=== PATIENT | male | born 1990 | race African-American/Black ===

== ENCOUNTER 2016-07-07 22:27 | Observation (INO) | payer OTHER ==
[~2016-07-07] VITALS: Ht 188 cm; Wt 70.0 kg
[2016-07-07 22:44] VITALS: BP 141/77; PULSE 64; RESP 18; TEMP 97.9; O2SAT 99
[2016-07-07] MEDS ORDERED: XANA1TAB2 PO (22:48)
[2016-07-08] VITALS (7 sets, daily range): BP systolic 111–142; BP diastolic 58–84; PULSE 48–81; RESP 16–18; TEMP 98–98.3; O2SAT 97–99
--- NOTE | 2016-07-08 00:07 | PD ---
HPI Chief Complaint: Chest Pain Time Seen by Provider: 23:48 Travel History International Travel<30 days: No Contact w/Intl Traveler<30days: No Traveled to known affect area: No History of Present Illness HPI 25-year-old male complains of chest pain. Patient states that he has recurrent chest pain for the past week and a half. Patient has been to [facility] times during that time for chest pain. Patient was diagnosis anxiety. Patient was given prescription Xanax. Patient states that he is unable to tolerated Xanax secondary to nausea vomiting. Patient states that the symptoms typical of increasing heart rate, feeling heavy on the chest, muscle spasm, numbness tingling sensation of the extremity. Patient states that the symptoms do she last 1245 minutes to an hour and resolved completely. Patient denies any history of CAD. Patient denies history hypertension, diabetes, dyslipidemia. Patient denies any alcohol or illicit drug abuse. Patient denies any history of smoking. PFSH Past Medical History Medical History: Denies Significant Hx ?: Not Past Surgical History Other Surgery: Yes (LEFT ARM SURGERY ) Social History Alcohol Use: No Tobacco Use: No Substance Use: No Allergies-Medications Reported Meds & Prescriptions Reported Meds & Active Scripts Active Reported Xanax (Alprazolam) 1 Mg Tab 1 Mg PO TID PRN Review of Systems General / Constitutional: No: Fever Eyes: No: Visual changes HENT: No: Headaches Cardiovascular: Positive: Chest Pain or Discomfort, Tachycardia Respiratory: No: Shortness of Breath Gastrointestinal: No: Abdominal Pain Genitourinary: No: Dysuria Musculoskeletal: No: Pain Skin: No Rash Neurologic: No: Weakness Psychiatric: No: Depression Endocrine: No: Polydipsia Hematologic/Lymphatic: No: Easy Bruising Physical Exam Narrative GENERAL: Well-nourished, well-developed patient. SKIN: Warm and dry. HEAD: Normocephalic. EYES: No scleral icterus. No injection or drainage. NECK: Supple, trachea midline. No JVD or lymphadenopathy. CARDIOVASCULAR: Regular rate and rhythm without murmurs, gallops, or rubs. RESPIRATORY: Breath sounds equal bilaterally. No accessory muscle use. GASTROINTESTINAL: Abdomen soft, non-tender, nondistended. MUSCULOSKELETAL: No cyanosis, or edema. BACK: Nontender without obvious deformity. No CVA tenderness. Neurologic exam normal. Data Data Last Documented VS Vital Signs Date Time Temp Pulse Resp B/P Pulse Ox O2 Delivery O2 Flow Rate FiO2 07/08/16 00:12 99 Room Air 07/07/16 22:44 97.9 64 18 141/77 Orders Electrocardiogram (07/07/16 23:59) Complete Blood Count With Diff (07/07/16 23:59) Comprehensive Metabolic Panel (07/07/16 23:59) Creatine Kinase (Cpk) (07/07/16 23:59) Troponin I (07/07/16 23:59) Prothrombin Time / Inr (Pt) (07/07/16 23:59) Act Partial Throm Time (Ptt) (07/07/16 23:59) Thyroid Stimulating Hormone (07/07/16 23:59) Chest, Single Ap (07/07/16 23:59) Iv Access Insert/Monitor (07/07/16 23:59) Ecg Monitoring (07/07/16 23:59) Oximetry (07/07/16 23:59) Drug Screen, Random Urine (07/08/16 00:04) Labs Laboratory Tests Test 07/08/16 00:10 White Blood Count 5.0 TH/MM3 Red Blood Count 4.59 MIL/MM3 Hemoglobin 13.8 GM/DL Hematocrit 40.8 % Mean Corpuscular Volume 88.9 FL Mean Corpuscular Hemoglobin 30.0 PG Mean Corpuscular Hemoglobin 33.8 % Concent Red Cell Distribution Width 12.6 % Platelet Count 224 TH/MM3 Mean Platelet Volume 9.8 FL Neutrophils (%) (Auto) 55.4 % Lymphocytes (%) (Auto) 32.6 % Monocytes (%) (Auto) 6.6 % Eosinophils (%) (Auto) 4.5 % Basophils (%) (Auto) 0.9 % Neutrophils # (Auto) 2.7 TH/MM3 Lymphocytes # (Auto) 1.6 TH/MM3 Monocytes # (Auto) 0.3 TH/MM3 Eosinophils # (Auto) 0.2 TH/MM3 Basophils # (Auto) 0.0 TH/MM3 CBC Comment DIFF FINAL Differential Comment Prothrombin Time 11.5 SEC Prothromb Time International 1.0 RATIO Ratio Activated Partial 29.4 SEC Thromboplast Time Sodium Level 142 MEQ/L Potassium Level 3.9 MEQ/L Chloride Level 107 MEQ/L Carbon Dioxide Level 26.8 MEQ/L Anion Gap 8 MEQ/L Blood Urea Nitrogen 10 MG/DL Creatinine 1.29 MG/DL Estimat Glomerular Filtration 83 ML/MIN Rate Random Glucose 78 MG/DL Calcium Level 8.7 MG/DL Total Bilirubin 0.3 MG/DL Aspartate Amino Transf 18 U/L (AST/SGOT) Alanine Aminotransferase 27 U/L (ALT/SGPT) Alkaline Phosphatase 67 U/L Total Creatine Kinase 188 U/L Troponin I LESS THAN 0.02 NG/ML Total Protein 7.2 GM/DL Albumin 4.3 GM/DL Thyroid Stimulating Hormone 1.490 uIU/ML 3rd Gen [facility] Medical Decision Making Medical Screen Exam Complete: Yes Emergency Medical Condition: Yes Interpretation(s) 12:54 AM. EKG shows sinus rhythm nonspecific ST-T wave change. CBC within normal limit. CMP within normal limit. Cardiac enzymes are normal. Differential Diagnosis Differential diagnosis including anxiety, angina, [place], PE, pneumothorax. Narrative Course 25-year-old male with recurrent chest pain tachycardia. History of anxiety. Patient will be admitted to the chest pain center. Diagnosis Primary Impression: Chest pain Qualified Code: R07.9 - Chest pain, unspecified type Admitting Information Admitting Physician Requests: Oliver Jung MD Jul 08, 2016 00:07
[2016-07-08 00:19] LABS: AUTOMATED NEUTROPHIL # 2.7 TH/MM3 (1.8-7.7); BASOPHIL % 0.9 % (0.0-2.0); EOSINOPHIL # 0.2 TH/MM3 (0-0.4); EOSINOPHIL % 4.5 % (0.0-4.0); HEMATOCRIT 40.8 % (39.0-51.0); HEMO FLAGS DIFF FINAL; LYMPH % 32.6 % (9.0-44.0); LYMPHOCYTE # 1.6 TH/MM3 (1.0-4.8); MEAN CELL VOLUME 88.9 FL (80.0-100.0); MEAN CORPUSCULAR HGB CONC 33.8 % (32.0-36.0); MONO % 6.6 % (0.0-8.0); NEUT % 55.4 % (16.0-70.0); PLATELET COUNT 224 TH/MM3 (150-450); RED BLOOD COUNT 4.59 MIL/MM3 (4.50-5.90); RED CELL DISTRIBUTION WIDTH 12.6 % (11.6-17.2)
[2016-07-08 00:25] LABS: APTT (PATIENT) 29.4 SEC (24.3-30.1); PROTHROMBIN TIME - PATIENT 11.5 SEC (9.8-11.6)
--- NOTE | 2016-07-08 00:38 | RADRPT ---
EXAM DATE/TIME: 07/08/2016 00:12 [facility] COMPARISON: No previous studies available for comparison. INDICATIONS : Chest pain. MEDICAL HISTORY : None. SURGICAL HISTORY : None. ENCOUNTER: Initial ACUITY: 1 day PAIN SCORE: 5/10 LOCATION: Bilateral chest FINDINGS: A single view of the chest demonstrates the lungs to be symmetrically aerated without evidence of mas s, infiltrate or effusion. The cardiomediastinal contours are unremarkable. Osseous structures are intact. CONCLUSION: Normal examination for a patient of this age. Terrell Martin MD on July 08, 2016 at 0:36 Board Certified Radiologist. This report was verified electronically.
[2016-07-08 00:47] LABS: ALKALINE PHOSPHATASE 67 U/L (45-117); ALT (GPT) 27 U/L (12-78); ANION GAP 8 MEQ/L (5-15); AST (GOT) 18 U/L (15-37); BICARBONATE 26.8 MEQ/L (21.0-32.0); BLOOD UREA NITROGEN 10 MG/DL (7-18); CHLORIDE 107 MEQ/L (98-107); CREATINE KINASE 188 U/L (39-308); GLOMERULAR FILTRATION RATE 83 ML/MIN (>89); POTASSIUM 3.9 MEQ/L (3.5-5.1); SODIUM (NA) 142 MEQ/L (136-145); TOTAL BILIRUBIN ADULT 0.3 MG/DL (0.2-1.0)
--- NOTE | 2016-07-08 10:39 | EKG ---
Date Performed: 07/08/2016 Time Performed: 09:12:31 PTAGE: 25 years EKG: Sinus rhythm WITH SINUS ARRHYTHMIA SEPTAL MYOCARDIAL INFARCTION ABNORMAL ECG Since previous tracing, no significa nt change noted NO PREVIOUS TRACING DOCTOR: Gretchen De Leon Interpretating Date/Time 07/08/2016 10:38:49
--- NOTE | 2016-07-08 10:43 | EKG ---
Date Performed: 07/08/2016 Time Performed: 04:43:13 PTAGE: 25 years EKG: SINUS BRADYCARDIA EARLY REPOLARIZATION BORDERLINE ECG NO PREVIOUS TRACING DOCTOR: Gretchen De Leon Interpretating Date/Time 07/08/2016 10:42:07
--- NOTE | 2016-07-08 10:44 | EKG ---
Date Performed: 07/07/2016 Time Performed: 23:59:45 PTAGE: 25 years EKG: SINUS BRADYCARDIA SEPTAL MYOCARDIAL INFARCTION ABNORMAL ECG NO PREVIOUS TRACING DOCTOR: Gretchen De Leon Interpretating Date/Time 07/08/2016 10:42:48
[2016-07-08] MEDS ORDERED: NITROGLYCERIN 0.4 MG SL 25 TABS/BTL SL PRN (15:45)
[2016-07-08] MEDS ORDERED: METOPROLOL TARTRATE 5 MG/5 ML VIAL IV PRN (15:45)
--- NOTE | 2016-07-08 16:15 | MH ---
cc: EDGAR HARPER MD DATE OF ADMISSION: 07/08/2016 DATE OF : 1990 CHIEF COMPLAINT Chest pain. HISTORY OF PRESENT ILLNESS This is a 25-year-old patient with no history of coronary artery disease, hypertension, diabetes or dyslipidemia. He also denies any alcohol or illegal drug use. He presented to the emergency room for chest pain located on his left anterior chest that occasionally will radiate to the left side of his neck. The patient states this has been going on "for a while" and has actually been evaluated at a local hospital multiple times for chest pain, and each time he was diagnosed with anxiety. He was given a prescription for Xanax, however, the patient states he is not anxious and truly believes he has coronary artery disease and requesting further evaluation. He has no associated symptoms, no known precipitating factors or relieving factors. PAST MEDICAL HISTORY Noncontributory for any early onset cardiovascular disease. 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 He is a lifelong nonsmoker. Denies any alcohol or illegal drug use. No known hypertension, diabetes or dyslipidemia and states he is actually healthy and exercises on a regular basis, even jogs occasionally and he does not develop any chest discomfort while he is jogging. ALLERGIES No known allergies. MEDICATIONS He is not taking any current prescription medications or vitamins or supplements. REVIEW OF SYSTEMS GENERAL: No recent illness, fevers, chills, recent travel or fatigue. No change in appetite. HEENT: No headache, vision changes, nasal congestion or drainage. CARDIOVASCULAR: As stated above. No intermittent leg pain or dizziness. No palpitations. RESPIRATORY: No shortness of breath, cough, wheeze, hemoptysis or asthma. GASTROINTESTINAL: No bowel changes, diarrhea, constipation, abdominal pain, distension, nausea or vomiting. Reports a good appetite. GENITOURINARY: No dysuria. EXTREMITIES: No lower leg edema. MUSCULOSKELETAL: He has full range of motion. NEUROLOGIC: No difficulty with balance, motor or sensory deficit. No loss of consciousness or syncopal episodes. PSYCHIATRIC: He has been told he has anxiety. The patient does not feel as though he is anxious. Denies depression. SKIN: No concerning rashes or lesions. PHYSICAL EXAMINATION VITAL SIGNS: Temperature 98.3, pulse 74, respiratory rate 18, blood pressure 131/84, 98% on room air. GENERAL: An alert, well-nourished, well-developed, in no acute distress, pleasant -[place] male. HEAD: Normocephalic, atraumatic. EYES: Sclera clear. Conjunctiva without injection. ENT: Mucous membranes are pink and moist. NECK: Supple. Trachea is midline. CARDIOVASCULAR: He has a regular rate and rhythm without murmur, rub or gallop. No JVD. S1, S2. No S3. No S4. PULMONARY: Clear lungs throughout bilaterally with no crackles, wheeze or rhonchi. He has a symmetrical chest rise. ABDOMEN: Flat, soft, nontender, nondistended. EXTREMITIES: Pulses +2 x4. No dependent edema. NEUROLOGIC: Cranial nerves II through XII grossly intact. Motor strength 5/5. Gait is within normal limits. PSYCHIATRIC: Alert and oriented x3. Pleasant affect. Appropriate mood, insight and judgment. SKIN: Normal turgor. Normal texture. Warm and dry with a brisk capillary refill. LABORATORY CBC is unremarkable. Chemistry is unremarkable. Coagulation is unremarkable. IMAGING Chest x-ray read by the radiologist has a normal examination for a patient of this age. EKG Three EKGs show normal sinus bradycardic rhythm with early repolarization. ASSESSMENT AND PLAN 1. Chest pain: The patient has been admitted to the chest pain center, was ruled out with three sets of EKGs and cardiac enzymes. He was seen and evaluated by Dr. Edgar Harper. I discussed with the patient in length the unlikelihood that his chest discomfort is related to coronary disease and most likely due to his probable anxiety. Discussed at length and encouraged the patient not to have a stress test due to a probable false positive test. The patient is adamant that he wants further cardiac testing, therefore a stress test was completed. The stress test was abnormal therefore we will now complete a CT coronary artery exam. This has been discussed with the patient at length and he is agreeable to this plan. 2. Anxiety: Encourage the patient to continue taking Xanax as previously ordered for him and to find a primary care provider to discuss any changes that may need to be made regarding antianxiety medication. Discussed and educated the patient that an anxiety attack does not necessarily need to be brought on by a stressful situation. The patient expresses understanding. Dictated by: PAM Morfin Sujit Fontaine /1:31 PM /4:14 PM
[2016-07-08] MEDS ORDERED: NITROGLYCERIN 0.4 MG SL 25 TABS/BTL SL ONE (16:49)
--- NOTE | 2016-07-08 18:38 | HHI.DCPOC ---
Discharge Care Plan Diagnosis: (1) Atypical chest pain (2) Anxiety Goals to Promote Your Health * To prevent worsening of your condition and complications * To maintain your health at the optimal level Directions to Meet Your Goals Take your medications as prescribed Follow your dietary instruction Follow activity as directed Keep your appointments as scheduled Take your immunizations and boosters as scheduled If your symptoms worsen call your PCP, if no PCP go to Urgent Care Center or Emergency Room Smoking is Dangerous to Your Health. Avoid second hand smoke Call the 24-hour hour crisis hotline for domestic abuse at Julissa Joel Jul 08, 2016 18:38
[2016-07-08] MEDS ORDERED: IOHEXOL 350 MG/ML 10 ML VIAL (for RAD DIAG) IV ONE (19:22)
--- NOTE | 2016-07-08 19:37 | RADRPT ---
EXAM DATE/TIME: 07/08/2016 16:56 [facility] COMPARISON: No previous studies available for comparison. INDICATIONS : Fast heart rate,chest pain, numbness in extremities for ten days. IV CONTRAST: 80 cc Omnipaque 350 (iohexol) IV RADIATION DOSE: 3.84 CTDIvol (mGy) MEDICAL HISTORY : None SURGICAL HISTORY : None. ENCOUNTER: Initial ACUITY: 2 weeks PAIN SCALE: 5/10 LOCATION: chest Cardiac TECHNIQUE: Volumetric scanning was obtained through the heart. Images were acquired on a multislice multiple ro w detector helical scanner timed for acquisition during peak arterial contrast. Images were reconstr ucted using a retrospective gating algorithm including single sector and multi-sector algorithms at m ultiple phases of the cardiac cycle. Images were interpreted using a combination of 2D and 3D visual ization modes including curved planar reformation, thin slab maximum intensity projection and volume rendering. Using automated exposure control and adjustment of the mA and/or kV according to patient size, radiation dose was kept as low as reasonably achievable to obtain optimal diagnostic quality im ages. FINDINGS: VESSEL ANALYSIS: DOMINANCE: The coronary system is left dominant. LEFT MAIN: Normal vessel without calcification or stenosis. LAD: Normal vessel without calcification or stenosis. CIRCUMFLEX: Normal vessel without calcification or stenosis. RCA: Normal vessel without calcification or stenosis. OTHER: Calcium score is zero. CONCLUSION: Normal examination. Armando Villalpando Jr., MD on July 08, 2016 at 19:30 Board Certified Radiologist. This report was verified electronically.
--- NOTE | 2016-07-09 15:34 | TR ---
Date Performed: 07/08/2016 Time Performed: 11:25:58 DOCTOR: Hudson Ritchie DRUG LIST: CLINICAL HISTORY: CHEST PAIN REASON FOR TEST: Chest pain REASON FOR ENDING: OBSERVATION: CONCLUSION: Eyal protocol completed. Stopped sec to reaching target heart rate and leg fatigue. Maximum MR=729 Max HR Achieved=88.0% Maximum LE=214/80 Total Exercise Time=9:26. St depression infer ior leads, t wave inversions. No reprod chest pain. No ectopy. Hypertensive bp response. Quick and un remarkable recovery. COMMENTS: ST depression noted at peak exercise which may represent ischemia
== END 2016-07-08 22:28 | disposition home or self-care (01) ==
LOC: NEPA 22:27 → NEDA 07-08 01:12 → NEDH 07-08 06:16 → NEPHCDU 07-08 19:30
PROVIDERS: ADMIT Internal Medicine Interventional Cardiology; ATTEND Internal Medicine Interventional Cardiology
DX: R07.89 Other chest pain (principal); F41.1 Generalized anxiety disorder; R94.31 Abnormal electrocardiogram [ECG] [EKG]
CPT/HCPCS: 71010; 75574; 80053; 82550; 84443; 84484; 85025; 85610; 85730; 93005; 93017; 99285; G0378; Q9967

== ENCOUNTER 2016-07-17 19:11 | Emergency (ER) | payer OTHER ==
[~2016-07-17] VITALS: Ht 188 cm; Wt 154.0 kg
[~2016-07-17 19:11] MED LIST: XANA1TAB2 PO
[2016-07-17 19:12] VITALS: BP 137/76; PULSE 71; RESP 14; TEMP 98.3; O2SAT 98
[2016-07-17 20:11] LABS: AUTOMATED NEUTROPHIL # 2.6 TH/MM3 (1.8-7.7); BASOPHIL % 0.9 % (0.0-2.0); EOSINOPHIL # 0.2 TH/MM3 (0-0.4); EOSINOPHIL % 4.8 % (0.0-4.0); HEMATOCRIT 41.2 % (39.0-51.0); HEMO FLAGS DIFF FINAL; LYMPHOCYTE # 1.6 TH/MM3 (1.0-4.8); MEAN CELL VOLUME 89.5 FL (80.0-100.0); MEAN CORPUSCULAR HEMOGLOBIN 30.2 PG (27.0-34.0); MEAN CORPUSCULAR HGB CONC 33.8 % (32.0-36.0); MONO % 6.7 % (0.0-8.0); NEUT % 54.6 % (16.0-70.0); PLATELET COUNT 216 TH/MM3 (150-450); RED CELL DISTRIBUTION WIDTH 12.9 % (11.6-17.2); WHITE BLOOD COUNT 4.7 TH/MM3 (4.0-11.0)
[2016-07-17 20:31] LABS: ANION GAP 6 MEQ/L (5-15); BICARBONATE 30.8 MEQ/L (21.0-32.0); BLOOD UREA NITROGEN 10 MG/DL (7-18); CHLORIDE 104 MEQ/L (98-107); GLOMERULAR FILTRATION RATE 85 ML/MIN (>89); POTASSIUM 3.6 MEQ/L (3.5-5.1); SODIUM (NA) 141 MEQ/L (136-145)
[2016-07-17 20:36] LABS: CREATINE KINASE 147 U/L (39-308)
[2016-07-17 20:49] LABS: CKMB 0.6 NG/ML (0.5-3.6)
[2016-07-18] MEDS ORDERED: IBUP-232 PO (04:09)
--- NOTE | 2016-07-18 04:09 | PD ---
HPI Chief Complaint: Chest Pain Time Seen by Provider: 03:00 Travel History International Travel<30 days: No Contact w/Intl Traveler<30days: No Traveled to known affect area: No History of Present Illness HPI 25-year-old male came to the emergency room with history of left sided scapular and axillary pain has been going on for over a week now. The pain comes in spasms on and off. Patient was seen in the emergency room for this pain on 08 July and was admitted in the chest pain center. He had a stress test which as per the report says that he did not pass it. This was followed by a CT coronary angiography which was read as within normal limits. Patient was cleared from cardiology standpoint. He is back here again today saying that the pain does not go away and because he took a lot of days off from work he lost his job. He was really concerned about the pain and wanted to know what was going on. Vital signs are stable. He is otherwise a healthy individual with no other medical problems. [facility] Past Medical History Narrative Medical List of his past medical history as reviewed from the nursing note. Medical History: Denies Significant Hx Tetanus Vaccination: < 5 Years Past Surgical History Other Surgery: Yes (LEFT ARM SURGERY ) Social History Alcohol Use: No Tobacco Use: No Substance Use: No Allergies-Medications (Allergen,Severity, Reaction): Coded Allergies: No Known Allergies (Unverified , 07/08/16) Comments No known drug allergies. Reported Meds & Prescriptions Reported Meds & Active Scripts Active Ibuprofen 600 Mg Tab 600 Mg PO Q8HR PRN Reported Xanax (Alprazolam) 1 Mg Tab 1 Mg PO TID PRN Narrative Medication List of his home medications reviewed from the nursing note. Review of Systems Except as stated in HPI: all other systems reviewed are Neg Physical Exam Narrative GENERAL: Awake, alert, anxious SKIN: Warm and dry. HEAD: Atraumatic. Normocephalic. EYES: Pupils equal and round. No scleral icterus. No injection or drainage. ENT: No nasal bleeding or discharge. Mucous membranes pink and moist. NECK: Trachea midline. No JVD. CARDIOVASCULAR: Regular rate and rhythm. No murmur appreciated. RESPIRATORY: No accessory muscle use. Clear to auscultation. Breath sounds equal bilaterally. GASTROINTESTINAL: Abdomen soft, non-tender, nondistended. Hepatic and splenic margins not palpable. MUSCULOSKELETAL: No obvious deformities. No clubbing. No cyanosis. No edema. NEUROLOGICAL: Awake and alert. No obvious cranial nerve deficits. Motor grossly within normal limits. Normal speech. PSYCHIATRIC: Appropriate mood and affect; insight and judgment normal. Data Data Last Documented VS Vital Signs Date Time Temp Pulse Resp B/P Pulse Ox O2 Delivery O2 Flow Rate FiO2 07/18/16 04:19 53 14 131/80 99 Room Air 07/17/16 19:12 98.3 Orders Electrocardiogram (07/17/16 19:41) Complete Blood Count With Diff (07/17/16 19:41) Basic Metabolic Panel (Bmp) (07/17/16 19:41) Ckmb (Isoenzyme) Profile (07/17/16 19:41) Troponin I (07/17/16 19:41) CKMB (07/17/16 19:51) CKMB% (07/17/16 19:51) D-Dimer (07/18/16 03:00) Labs Laboratory Tests Test 07/17/16 07/18/16 19:51 03:15 White Blood Count 4.7 TH/MM3 Red Blood Count 4.60 MIL/MM3 Hemoglobin 13.9 GM/DL Hematocrit 41.2 % Mean Corpuscular Volume 89.5 FL Mean Corpuscular Hemoglobin 30.2 PG Mean Corpuscular Hemoglobin 33.8 % Concent Red Cell Distribution Width 12.9 % Platelet Count 216 TH/MM3 Mean Platelet Volume 9.2 FL Neutrophils (%) (Auto) 54.6 % Lymphocytes (%) (Auto) 33.0 % Monocytes (%) (Auto) 6.7 % Eosinophils (%) (Auto) 4.8 % Basophils (%) (Auto) 0.9 % Neutrophils # (Auto) 2.6 TH/MM3 Lymphocytes # (Auto) 1.6 TH/MM3 Monocytes # (Auto) 0.3 TH/MM3 Eosinophils # (Auto) 0.2 TH/MM3 Basophils # (Auto) 0.0 TH/MM3 CBC Comment DIFF FINAL Differential Comment Sodium Level 141 MEQ/L Potassium Level 3.6 MEQ/L Chloride Level 104 MEQ/L Carbon Dioxide Level 30.8 MEQ/L Anion Gap 6 MEQ/L Blood Urea Nitrogen 10 MG/DL Creatinine 1.26 MG/DL Estimat Glomerular Filtration 85 ML/MIN Rate Random Glucose 88 MG/DL Calcium Level 8.7 MG/DL Total Creatine Kinase 147 U/L Creatine Kinase MB 0.6 NG/ML Troponin I LESS THAN 0.02 NG/ML D-Dimer Quantitative (PE/DVT) LESS THAN 0.19 MG/L FEU [facility] Medical Decision Making Medical Screen Exam Complete: Yes Emergency Medical Condition: Yes Medical Record Reviewed: Yes Interpretation(s) Twelve-lead EKG was reviewed by me. Normal sinus rhythm, normal axis, bradycardia, nonspecific ST-T wave changes. Heart rate of 54 bpm. Differential Diagnosis Nonspecific chest pain, muscular schedule chest pain Narrative Course 4:14 AM blood test results were already back that were done in the waiting room including troponin which was negative. I added a d-dimer which has come back as negative as well. At this point given the extensive workup that's already been done less than 2 weeks ago I explained to the patient that I have no further workup to offer. I will have to discharge him home at this point. Procedures EKG Prior to Arrival: No Diagnosis Primary Impression: Muscular pain Referrals: Primary Care Physician 3 days Additional Instructions: Please follow-up with your primary care in couple days. Take medication given to you as per the prescription direction. Med/Other Pt SpecificInfo: Prescription(s) given Scripts Ibuprofen 600 Mg [id number] Mg PO Q8HR PRN (PAIN) #21 TAB Ref 0 Prov:Janee Johnson MD 07/18/16 Disposition: 01 DISCHARGE HOME Condition: Stable Janee Johnson MD Jul 18, 2016 04:09
[2016-07-18 04:19] VITALS: BP 131/80; PULSE 53; RESP 14; O2SAT 99
--- NOTE | 2016-07-18 13:29 | EKG ---
Date Performed: 07/17/2016 Time Performed: 19:48:07 PTAGE: 25 years EKG: SINUS BRADYCARDIA WITH SINUS ARRHYTHMIA BORDERLINE ECG PREVIOUS TRACING : 07/08/2016 09.12 Since previous tracing, no significant change noted DOCTOR: Danica Dsouza Interpretating Date/Time 07/18/2016 13:28:32
== END 2016-07-18 04:38 | disposition home or self-care (01) ==
LOC: NEPE 19:11
DX: M25.512 Pain in left shoulder (principal)
CPT/HCPCS: 80048; 82550; 82552; 84484; 85025; 85379; 93005

== ENCOUNTER 2016-08-20 23:39 | Emergency (ER) | payer MEDICAID, OTHER ==
[~2016-08-20] VITALS: Ht 188 cm; Wt 70.0 kg
[~2016-08-20 23:39] MED LIST changes: +IBUP-232 PO
[2016-08-20 23:41] VITALS: BP 159/78; PULSE 74; RESP 14; TEMP 97.8; O2SAT 99
--- NOTE | 2016-08-21 00:11 | PD ---
HPI Chief Complaint: Pain: Acute or Chronic Time Seen by Provider: 00:06 Travel History International Travel<30 days: No Contact w/Intl Traveler<30days: No Traveled to known affect area: No History of Present Illness HPI Patient comes in for evaluation of left-sided head pain ongoing intermittently for little over a week. Patient reports symptoms of the more constant over the past 2-3 days. Describes the pain is a sharp burning sensation on the left side of his head and radiates inferiorly. Patient states he started using over- the-counter medicine with minimal to no relief of his symptoms. Patient reports that his significant other has been rubbing his head at night to help him sleep and sometimes when she is rubbing it it causes the pain to shoot inferiorly. Patient denies any trauma, fever, neck pain, chest pain, shortness of breath, numbness or tingling anywhere, loss change in bowel or bladder, change in vision, history of headaches, family history of headaches or aneurysms , or drug use. PFSH Past Medical History Medical History: Denies Significant Hx Diminished Hearing: No Tetanus Vaccination: < 5 Years Influenza Vaccination: No Past Surgical History Surgical History: No Previous Surgery Other Surgery: Yes (LEFT ARM SURGERY ) Social History Alcohol Use: No Tobacco Use: No Substance Use: No Allergies-Medications (Allergen,Severity, Reaction): Coded Allergies: No Known Allergies (Unverified , 08/20/16) Reported Meds & Prescriptions Reported Meds & Active Scripts Active Naprosyn (Naproxen) 500 Mg Tab 500 Mg PO Q12HR PRN Review of Systems Except as stated in HPI: all other systems reviewed are Neg Physical Exam Narrative GENERAL: Well-developed, well nourished, in no acute distress, and non-ill appearing. Patient is playing/texting on his phone. SKIN: Warm and dry. HEAD: Atraumatic. Normocephalic. EYES: Pupils equal and round. EOMI. No scleral icterus. No injection or drainage. ENT: No nasal bleeding or discharge. Mucous membranes pink and moist. Tympanic membranes not visualized secondary to cerumen. Posterior pharynx erythematous without exudate. Uvula is midline. No tenderness to facial sinuses palpation. NECK: Trachea midline. No cervical lymphadenopathy. Supple. No nuclear rigidity. CARDIOVASCULAR: Regular rate and rhythm. No murmur appreciated. RESPIRATORY: No accessory muscle use. No respiratory distress. Clear to auscultation. Breath sounds equal bilaterally. MUSCULOSKELETAL: No obvious deformities. No clubbing. No cyanosis. No edema. Full range of motion. NEUROLOGICAL: Awake and alert. No obvious cranial nerve deficits. Motor grossly within normal limits. Normal speech. PSYCHIATRIC: Appropriate mood and affect; insight and judgment normal. Data Data Last Documented VS Vital Signs Date Time Temp Pulse Resp B/P Pulse Ox O2 Delivery O2 Flow Rate FiO2 08/20/16 23:58 18 08/20/16 23:41 97.8 74 159/[address] Brain W/O Iv Contrast(Rout) (08/21/16 ) MDM Medical Decision Making Medical Screen Exam Complete: Yes Emergency Medical Condition: Yes Differential Diagnosis Headache, migraine, head pain, musculoskeletal pain, tumor, other Narrative Course The patients headache appeared nonspecific. Due to patients subjective complaint and presentation, a head CT was performed which was normal and without evidence of blood or mass. The patient looks great, feels better and is in no significant objective discomfort currently. The patient is in no distress and the patients neurological exam is normal, neck is supple and without meningismus. The headache is not consistent with meningitis or infection, nor does it appear consistent with intracranial bleed (SAH etc.), carotid dissection , nor mass by history, examination and evaluation. There is very little clinical evidence to suggest missed hemorrhage on CT and/or sentinel bleed thus an invasive procedure such as a lumbar puncture was not performed. Medication and instructions to rest in a cool dark quite place were discussed with the patient. Also, outpatient follow up was instructed. The patient was instructed to return as needed or if symptoms changed or worsened, fever developed or inability to tolerate fluids. The patient agreed with plan. Patient in no obvious distress upon re-evaluation. All pertinent Radiology result(s) discussed with patient. Patient was asked if they wanted to speak to my attending, which the patient did not wish to do at this time. Any questions/ concerns in reference to patient diagnosis/condition discussed and clarified prior to patient's discharge. Reinforced sheer importance of close follow up with patient's primary physician or primary care clinic. Instructed patient to return to ED immediately, if symptoms return/worsen. Pt showed understanding of above instructions. Further instructions and recommendations were detailed in discharge paperwork. Pt ambulated without difficulty out of ED at discharge. Diagnosis Primary Impression: Pain in the head Qualified Code: R51 - Nonintractable headache, unspecified chronicity pattern , unspecified headache type Additional Impression: Chronic left maxillary sinusitis Referrals: Primary Care Physician Patient Instructions: General Instructions, Sinusitis (ED) Additional Instructions: Follow-up with your primary care physician, ENT, and/or neurologist in 2-5 days for reevaluation. Take all medication as prescribed. Use [id number] allergy medicine as needed for symptomatic relief. Follow instructions on the packaging. Return to the emergency department if symptoms get worse. Med/Other Pt SpecificInfo: Prescription(s) given Scripts Naproxen (Naprosyn)500 Mg [id number] Mg PO Q12HR PRN (HEADACHE) #10 TAB Ref 0 Prov:Ernestina Hudson MD 08/21/16 Disposition: 01 DISCHARGE HOME Condition: Stable Nehemiah Abdullahi Aug 21, 2016 00:11
--- NOTE | 2016-08-21 00:43 | RADRPT ---
EXAM DATE/TIME: 08/21/2016 00:28 [facility] COMPARISON: No previous studies available for comparison. INDICATIONS : Headaches for 1 week. RADIATION DOSE: 40.35 CTDIvol (mGy) MEDICAL HISTORY : None SURGICAL HISTORY : None. ENCOUNTER: Initial ACUITY: 1 week PAIN SCALE: 7/10 LOCATION: cranial TECHNIQUE: Multiple contiguous axial images were obtained of the head. Using automated exposure control and adj ustment of the mA and/or kV according to patient size, radiation dose was kept as low as reasonably a chievable to obtain optimal diagnostic quality images. FINDINGS: CEREBRUM: The ventricles are normal for age. No evidence of midline shift, mass lesion, hemorrhage or acute in farction. No extra-axial fluid collections are seen. POSTERIOR FOSSA: The cerebellum and brainstem are intact. The 4th ventricle is midline. The cerebellopontine angle i s unremarkable. EXTRACRANIAL: The visualized portion of the orbits is intact. Minimal mucoperiosteal thickening in the left maxilla ry antra SKULL: The calvaria is intact. No evidence of skull fracture. CONCLUSION: 1. Minimal chronic sinus disease in the left maxillary antra. 2. Otherwise negative. Jonathan Head MD on August 21, 2016 at 0:40 Board Certified Radiologist. This report was verified electronically.
[2016-08-21] MEDS ORDERED: NAPR500 PO (00:53)
== END 2016-08-21 01:26 | disposition home or self-care (01) ==
LOC: NEPB 23:39
DX: R51 Headache (principal); J32.0 Chronic maxillary sinusitis
CPT/HCPCS: 70450

== ENCOUNTER 2017-02-23 13:55 | Emergency (ER) | payer MEDICAID ==
[~2017-02-23] VITALS: Ht 182.9 cm; Wt 82.0 kg
[~2017-02-23 13:55] MED LIST changes: -IBUP-232 PO; +NAPR500 PO; -XANA1TAB2 PO
[2017-02-23 14:02] VITALS: BP 138/82; PULSE 71; RESP 17; TEMP 98.3; O2SAT 100
[2017-02-23] MEDS ORDERED: SODIUM CHLORIDE 0.9% FLUSH 10 ML FLUSH IVF PRN (14:15)
[2017-02-23] MEDS ORDERED: ASPIRIN 81 MG CHEW TAB PO ONE (14:15)
--- NOTE | 2017-02-23 14:19 | PD ---
HPI Chief Complaint: Chest Pain Time Seen by Provider: 14:09 Travel History International Travel<30 days: No Contact w/Intl Traveler<30days: No Traveled to known affect area: No History of Present Illness HPI 26 year old male presents to the emergency for evaluation of intermittent left- sided sharp chest pain that is intermittent for the past week. He states occur approximately twice daily. The last about 2 minutes and then it'll go away. Patient points to specific area in his left lower chest for this occurs. He does report some mild left-sided neck pain. He has no chronic medical problems. He takes no prescribed medications. Patient denies any history of personal cardiac disease. He denies any family history of cutting cardiac before the age of 40. He denies any IV drug use. No recent surgeries or travel. No leg edema. No history DVT/PE or cancer. No marked distress. Patient is not tachycardic or hypoxic. Patient appears well on exam. PFSH Past Medical History Anxiety: Yes Diminished Hearing: No Respiratory: Yes (chronic sinusitis) Influenza Vaccination: No Past Surgical History Other Surgery: Yes (LEFT ARM SURGERY ) Social History Alcohol Use: No Tobacco Use: No Substance Use: No Allergies-Medications (Allergen,Severity, Reaction): Coded Allergies: No Known Allergies (Unverified , 02/23/17) Reported Meds & Prescriptions Reported Meds & Active Scripts Active No Active Prescriptions or Reported Medications Review of Systems Except as stated in HPI: all other systems reviewed are Neg Physical Exam Narrative GENERAL: Well-nourished, well-developed male patient, afebrile. SKIN: Focused skin assessment warm/dry. HEAD: Normocephalic. Atraumatic. EYES: No scleral icterus. No injection or drainage. NECK: Supple, trachea midline. No JVD or lymphadenopathy. CARDIOVASCULAR: Regular rate and rhythm without murmurs, gallops, or rubs. RESPIRATORY: Breath sounds equal bilaterally. No accessory muscle use. Lungs sounds are clear to auscultation. GASTROINTESTINAL: Abdomen soft, non-tender, nondistended. MUSCULOSKELETAL: No cyanosis, or edema. BACK: Nontender without obvious deformity. No CVA tenderness. Data Data Last Documented VS Vital Signs Date Time Temp Pulse Resp B/P (MAP) Pulse Ox O2 Delivery O2 Flow Rate FiO2 02/23/17 14:21 98 02/23/17 14:21 Room Air 02/23/17 14:02 98.3 71 17 Orders Orders Chest, Single Ap (02/23/17 14:15) Ecg Monitoring (02/23/17 14:15) Iv Access Insert/Monitor (02/23/17 14:15) Oximetry (02/23/17 14:15) Oxygen Administration (02/23/17 14:15) Aspirin Chew (Aspirin Chew) (02/23/17 14:15) Sodium Chloride 0.9% Flush (Ns Flush) (02/23/17 14:15) MDM Medical Decision Making Medical Screen Exam Complete: Yes Emergency Medical Condition: Yes Medical Record Reviewed: Yes Interpretation(s) Last Impressions Chest X-Ray 02/23/17 1415 Signed Impressions: Service Date/Time: Thursday, February 23, 2017 14:39 - CONCLUSION: 1. No acute cardiopulmonary disease. Ezequiel Marin MD Differential Diagnosis Chest wall pain versus atypical chest pain Narrative Course 26-year-old male presents to the emergency department for evaluation of left- sided chest pain has been intermittent for 2 weeks. Patient was seen here earlier this year and had examination for similar chest pain. His EKG remains unchanged. He had a coronary artery CT which was normal. Patient is PERC negative. Patient is given aspirin 162 mg by mouth. Chest x-ray is ordered and pending. My attending physician, Dr. Sung, agrees with plan and disposition. He reviewed EKG. Chest x-ray shows no acute cardiopulmonary disease. The patient was seen here earlier this year for same symptoms. Patient has atypical chest pain. He is instructed to follow up with his primary care physician. My attending physician , Dr. Sung, agrees with plan and disposition. Diagnosis Primary Impression: Atypical chest pain Referrals: Primary Care Physician call for appointment Patient Instructions: Chest Pain (ED), General Instructions Additional Instructions: Follow up with your primary care physician or television agent. Return to the emergency department for any acute, worsening of symptoms. Med/Other Pt SpecificInfo: No Change to Meds Scripts No Active Prescriptions or Reported Meds Disposition: 01 DISCHARGE HOME Condition: Stable Shirin NavaP Feb 23, 2017 14:19
[2017-02-23 14:21] VITALS: O2SAT 98
--- NOTE | 2017-02-23 14:41 | RADRPT ---
EXAM DATE/TIME: 02/23/2017 14:39 [facility] COMPARISON: CHEST SINGLE AP, July 08, 2016, 0:12. INDICATIONS : Chest pain since yesterday. MEDICAL HISTORY : Hypertension. SURGICAL HISTORY : None. ENCOUNTER: Initial ACUITY: 1 day PAIN SCORE: 7/10 LOCATION: Left chest FINDINGS: A single view of the chest demonstrates the lungs to be symmetrically aerated without evidence of mas s, infiltrate or effusion. The cardiomediastinal contours are unremarkable. Osseous structures are intact. CONCLUSION: 1. No acute cardiopulmonary disease. Ezequiel Marin MD on February 23, 2017 at 14:39 Board Certified Radiologist. This report was verified electronically.
--- NOTE | 2017-02-24 14:06 | EKG ---
Date Performed: 02/23/2017 Time Performed: 14:05:22 PTAGE: 26 years EKG: Sinus rhythm WITH SINUS ARRHYTHMIA NORMAL ECG Compared to prior tracing no significant change PREVIOUS TRACING : 07/17/16 DOCTOR: Danica Dsouza Interpretating Date/Time 02/24/2017 14:01:32
== END 2017-02-23 15:19 | disposition home or self-care (01) ==
LOC: NEPD 13:55
DX: R07.89 Other chest pain (principal); M54.2 Cervicalgia; I49.8 Other specified cardiac arrhythmias; F41.9 Anxiety disorder, unspecified
CPT/HCPCS: 71010; 93005; 99284